=== PATIENT | female | born 2005 | race African-American/Black ===

== ENCOUNTER 2025-08-25 16:49 | Emergency (ER) | payer OTHER, SELFPAY ==
--- NOTE | ~2025-08-25 | XR_ITS ---
CLINICAL HISTORY: PAIN Three views of the right ankle. COMPARISON: None provided. FINDINGS: No ankle joint effusion. Ankle mortise appears symmetric on non-stressed views. Talar dome appears intact. Distal tibia and fibula appear intact. Linear lucency along the lateral aspect of the cuboid. Otherwise visualized tarsal bones appear intact. IMPRESSION: 1. Question nondisplaced fracture of the lateral aspect cuboid. Recommend correlation with prior imaging and clinical history. This document has been electronically signed by: Cash Hernandez MD on 08/25/2025 18:03:19
--- NOTE | ~2025-08-25 | CT_ITS ---
CLINICAL HISTORY: ?cuboid fx CT of the right lower extremity without IV contrast. COMPARISON: XR right ankle dated 08/25/25 at 17:25 EST FINDINGS: Nondisplaced fracture of the superior lateral and lateral aspect of the cuboid (best seen on sagittal reformats series 9, image 83 and 90). Nondisplaced fracture of the anterior process of the calcaneus (series 9, image 82). Remaining tarsal bones, metatarsals and phalanges appear intact. Visualized portions of the distal tibia and fibula appear intact. No ankle joint effusion. IMPRESSION: 1. Nondisplaced fracture of the superior lateral and lateral aspect of the cuboid. 2. Nondisplaced fracture of the anterior process calcaneus. This document has been electronically signed by: Cash Hernandez MD on 08/25/2025 21:05:14
--- NOTE | ~2025-08-25 | XR_ITS ---
CLINICAL HISTORY: PAIN Three views of the right foot. COMPARISON: None provided. FINDINGS: No ankle joint effusion. Normal tarsometatarsal alignment. Linear lucency along the body of the cuboid. Remaining tarsal bones appear intact. Metatarsals and phalanges appear intact. IMPRESSION: 1. Question nondisplaced fracture of the cuboid. Recommend correlation with point tenderness. CT of the foot would be helpful for further characterization if appropriate. This document has been electronically signed by: Cash Hernandez MD on 08/25/2025 18:02:23
[2025-08-25 16:55] VITALS: BP 110/63; PULSE 93; RESP 18; TEMP 36.6; O2SAT 98; BMI 28.2
--- NOTE | 2025-08-25 16:56 | ED.LOWEXIN ---
HPI - Extremity Injury (Lower) General Chief Complaint: Extremity Injury, Lower Stated Complaint: rt leg injury Time Seen by Provider: 08/25/25 18:42 Source: patient and RN notes reviewed Mode of arrival: ambulatory Limitations: no limitations History of Present Illness ED Provider: Paris Seymour PA-C HPI Narrative: This is a 20-year-old female who presents emergency department with concerns of right ankle pain status post tripping in a pothole. Patient states that she twisted her right ankle, and immediately had pain. No head strike or LOC.She has been unable to bear weight on her right foot and ankle secondary to the pain. Unsure if she fell today popping or cracking sensation. She took ibuprofen prior to arrival today. No other complaints or concerns at this time. MD complaint: ankle injury and foot injury Onset (ago): hour(s) Type of Injury: inversion Place: street/outdoors Associated symptoms: snap/pop sensation, swelling and unable to bear weight Other symptoms: none Related Data Previous Rx's ?Medication ?Instructions ?Recorded acetaminophen 500 mg capsule 1,000 mg (2 x 500 mg) PO .q8 PRN 08/25/25 fever or pain #30 caps ibuprofen 600 mg tablet 600 mg PO Q8H PRN fever or pain 08/25/25 #30 tabs oxycodone 5 mg tablet 5 mg PO TID PRN pain, severe #14 08/25/25 tabs Allergies Allergy/AdvReac Type Severity Reaction Status Date / Time shellfish derived (shellfish) Allergy Unknown Verified 08/25/25 16:57 Review of Systems Review of Systems: Constitutional : No Fever, No Chills ENT/Mouth : No sore throat, No Rhinorrhea Eyes: No Eye Pain, No Swelling, No Redness Cardiovascular : No Chest Pain, No SOB Respiratory : No Cough, No Sputum Gastrointestinal : No Nausea, No Vomiting, No Diarrhea, No abdominal Pain Genitourinary : No Dysuria, No Hematuria Musculoskeletal : + joint pain, No Myalgias, + Joint Swelling Skin : No Skin Lesions Neuro : No Weakness, No Numbness, No Headache All other systems reviewed and are negative Yes all other systems are reviewed and are negative Constitutional: Constitutional: Reports as per [facility] Social History Social History Advance Directives: No Advance Directives Information Provided: No Do you have a plan to hurt others: No Plan Physical Exam Exam: Exam: General: Awake, alert, and oriented X3. No acute distress. HEENT: Normal inspection CVS: Normal heart rate and rhythm. Pulses normal. Respiratory: No respiratory distress Skin: Warm, dry, no rashes noted to exposed skin. Normal skin color. Normal skin turgor. Extremities: Right ankle with tenderness palpation along the lateral malleolus with moderate edema noted. She also has tenderness palpation along the forefoot. Strong DP PT pulses. No open wounds. Neuro: Oriented X 3. No motor deficit. No sensory deficit. Vital Signs: Vital Signs: Last Vital Signs Temp 98 F 08/25/25 16:55 Pulse 93 08/25/25 16:55 Resp 18 08/25/25 16:55 BP 110/63 08/25/25 16:55 Pulse Ox 98 08/25/25 16:55 O2 Del Method Room Air 08/25/25 16:55 BMI result Body Mass Index 28.2 Course Course Course Narrative: This is an RME: Additional HPI, ROS, PE not included below will be deferred to primary provider. RME assessment and note performed by: Paris Seymour PA-C This is a [id number]-female, asthma and eczema, who presents to the ER wtih complaints of right ankle/foot pain s/p inversion injury. TTP overlying the lateral mallelous and lateral foot. No open wounds Plan: Xrays Reevaluation(s) Reevaluation #1: 10:36 PM 08/25/2025 ([facility]): The patient is a 20-year-old female presenting to the ED for evaluation of right foot and ankle pain after twisting her foot in a pothole. The patient was sent for x-ray which showed question irregularity of the cuboid. Recommendation for CT. Patient was signed out to this provider pending CT results. CT has now resulted and confirms nondisplaced fracture of the cuboid as well as a nondisplaced fracture of the anterior process of the calcaneus, no involvement of the posterior calcaneus, no displacement. Seeing as the patient's injury was not from axial loading, there was no involvement of the posterior calcaneus, and the fractures are stable and nondisplaced, patient will be placed in a walking boot and provided crutches to remain nonweightbearing until follow up with Orthopedics. Medications Administered Discontinued Medications Generic Name Dose Route Start Last Admin Trade Name Satinder PRN Reason Stop Dose Admin Acetaminophen 975 mg 08/25/25 19:07 08/25/25 19:26 Acetaminophen 325 Mg Tablet PO 08/25/25 19:08 975 mg ONCE ONE Administration Medical Decision Making Medical Decision Making MDM Narrative: This is a 20-year-old female who presents emergency department with concerns of right ankle pain status post tripping in a pothole. Patient states that she twisted her right ankle, and immediately had pain. On arrival, vital signs within normal limits. She is speaking full sentences under no acute distress. Differential diagnoses, fracture, contusion, sprain, strain. 8:05 PM 08/25/2025 (Paris Seymour PA-C): X-ray of the ankle and foot reveal a question of a nondisplaced fracture of the cuboid. Recommending CT of the foot. CT of the foot was ordered, also ordered Tylenol p.o.. Differential Diagnosis Differential Diagnoses: The differential diagnosis associated with the presentation includes Fracture, contusion, sprain, strain Radiology Impression Discussion of test interpretation with radiology: I have reviewed the radiologist's reading. Radiologist Impression: FINDINGS: No ankle joint effusion. Ankle mortise appears symmetric on non-stressed views. Talar dome appears intact. Distal tibia and fibula appear intact. Linear lucency along the lateral aspect of the cuboid. Otherwise visualized tarsal bones appear intact. IMPRESSION: 1. Question nondisplaced fracture of the lateral aspect cuboid. Recommend correlation with prior imaging and clinical history. This document has been electronically signed by: Cash Hernandez MD on 08/25/2025 18:03:19 Dictated By: Cash Hernandez MD FINDINGS: No ankle joint effusion. Normal tarsometatarsal alignment. Linear lucency along the body of the cuboid. Remaining tarsal bones appear intact. Metatarsals and phalanges appear intact. IMPRESSION: 1. Question nondisplaced fracture of the cuboid. Recommend correlation with point tenderness. CT of the foot would be helpful for further characterization if appropriate. This document has been electronically signed by: Cash Hernandez MD on 08/25/2025 18:02:23 Dictated By: Cash Hernandez MD Discharge Plan Discharge Clinical Impression: Closed fracture of cuboid of right foot Qualifiers: Encounter type: initial encounter Fracture alignment: nondisplaced Qualified Code(s): S92.214A - Nondisplaced fracture of cuboid bone of right foot, initial encounter for closed fracture Closed fracture of right calcaneus Qualifiers: Encounter type: initial encounter Calcaneus location: anterior process Fracture alignment: nondisplaced Qualified Code(s): S92.024A - Nondisplaced fracture of anterior process of right calcaneus, initial encounter for closed fracture Patient Disposition: Home, Self-Care Instructions: Foot Fracture in Adults (ED), Calcaneal Fracture (ED) Additional Instructions: Thank you for choosing [facility]'s Emergency Department for your care today. At this time there is no indication for admission to the hospital or continued ED observation, and it is safe to discharge you home. Unfortunately your x-ray and CT today showed evidence of a nondisplaced fracture of your calcaneus bone, and your cuboid bone of your right foot. We have placed you in a splint, and provided you with crutches. Please use the crutches to remain non-weightbearing until instructed otherwise by the orthopedic team/clinic. Please keep the splint on and dry until follow up with the orthopedic clinic. Please call the orthopedic clinic at the number provided to schedule a follow up appointment. You should take alternating (staggered) doses of ibuprofen 600mg and Tylenol 1000mg every 4 hours as needed for any additional pain. Please rest the injured area, and apply ice for 20 minutes every hour. As a part of your care plan, you have also been prescribed an opiate based pain medication called oxycodone. There is no requirement to take this medication. Please take this medication only for severe pain that is not relieved by ibuprofen and/or Tylenol. Opiate based medications have a high risk of unintentional addiction and abuse. Take this medication only as directed and only if absolutely necessary. This medicine can make you drowsy, you are not allowed to drive, operate heavy machinery, or be the sole care provider for children while taking this medication. Please follow up with your primary care physician for re-evaluation, additional management of your symptoms, and continued preventative care. If you do not have a primary care physician, please call the [facility] at [phone] to establish a new primary care physician. While waiting to establish your new primary care physician, you can call our Walk-in Care Clinic at [phone] for non-emergency needs. Please return to the emergency department if you develop a severe or sudden change in your symptoms, a fever over 100.4 that does not improve with Tylenol or Ibuprofen, recurrent vomiting, or any other new or worsening symptoms or concerns. Prescriptions: New ibuprofen 600 mg tablet 600 mg PO Q8H PRN (Reason: fever or pain) Qty: 30 0RF acetaminophen 500 mg capsule 1,000 mg PO .q8 PRN (Reason: fever or pain) Qty: 30 0RF oxycodone 5 mg tablet 5 mg PO TID PRN (Reason: pain, severe) Qty: 14 0RF Rx Instructions: Partial Fill upon patient request. Referrals: [facility] [place] Orthopedic Surgeons [Provider Group] Stand Alone Forms: Work/School Release Print Language: Persian
[2025-08-25 23:08] VITALS: BP 119/64; PULSE 76; RESP 14; TEMP 36.3; O2SAT 96
[2025-08-25 23:35] VITALS: BP 119/64; PULSE 76; RESP 14; TEMP 36.3; O2SAT 96
== END 2025-08-25 23:36 | disposition home or self-care (01) ==
PROVIDERS: Emergency Provider Emergency Medicine Emergency Medical Services
DX: S92.214A Nondisplaced fracture of cuboid bone of right foot, initial encounter for closed fracture (principal); S92.024A Nondisplaced fracture of anterior process of right calcaneus, initial encounter for closed fracture; W18.42XA Slipping, tripping and stumbling without falling due to stepping into hole or opening, initial encounter; Y93.9 Activity, unspecified; Y92.410 Unspecified street and highway as the place of occurrence of the external cause; Y99.9 Unspecified external cause status; Z91.013 Allergy to seafood
CPT/HCPCS: 73610; 73630; 73700; 99283; 99284

== ENCOUNTER → 2025-08-25 16:59 | Outpatient (BNV) | payer OTHER, SELFPAY | PROVIDERS: Emergency Provider Emergency Medicine Emergency Medical Services; Visit Provider Radiology Diagnostic Radiology | DX: S92.214A Nondisplaced fracture of cuboid bone of right foot, initial encounter for closed fracture (principal); S92.024A Nondisplaced fracture of anterior process of right calcaneus, initial encounter for closed fracture; M25.571 Pain in right ankle and joints of right foot; M79.671 Pain in right foot | CPT/HCPCS: 73610; 73630; 73700 ==

== ENCOUNTER 2025-08-27 12:33 | Outpatient (AMB) | payer OTHER, SELFPAY ==
[2025-08-27 12:44] VITALS: BMI 28.2
--- NOTE | 2025-08-27 12:44 | A.OFFVIS_ITS ---
Vital Signs 08/27/25 12:44 Height 5 ft 6 in Weight 175 lb BMI 28.2 Intake Visit Reasons: Nondisplaced fracture of cuboid bone of right foot Intake Note: Brad is a 20 year old female who presents today as a new patient for an evaluation of her non displaced fracture of the cuboid bone on the right foot. Patient reports injury occurred after tripping over a pot whole. [place] [facility] [place] she was provided with [place] and prescribed Tylenol 500, ibuprofen 600, and oxycodone 5mg. Patient reports the medication have helped slightly. She had a previous sprain of her ankle of the right foot last year. Allergies shellfish derived (shellfish) Allergy (Verified 08/27/25 13:00) Unknown HPI Comments Details: The patient is a 20-year-old female with a past medical history as seen below presenting with right foot pain following a fall. The patient states she tripped on a pothole. The patient described the incident as a popping situation where the foot was rolled, leading to the injury. The pain severity varies, reaching up to 6-7/10 without medication and reducing to 4/10 with medication. Initial swelling and bruising were significant, particularly around the cuboid and calcaneus areas. She denies any numbness and tingling. Patient went to the emergency room where she had x-rays and was placed in a cam boot with crutches.. She denies any other pedal concerns. [facility] Medical History (Updated 08/30/25 @ 16:53 by Carmen Zavala DPM) Right foot injury Right foot pain Review of Systems Const Details: - Musculoskeletal: Reports right foot pain, swelling, and bruising following an injury. All systems reviewed & are unremarkable except as noted in HPI and below Physical Exam Vital Signs: BMI result Body Mass Index 28.2 Extrem Other: Right lower extremity focused physical exam: Derm: No open lesions abrasions or wounds noted. No ecchymosis or discoloration noted. No Clinical signs of infection noted. Skin supple and turgor within normal limits. Vascular: DP/PT pulses palpable. Capillary refill time less than 3 seconds. Temperature gradient warm to warm. Mild edema noted to the foot. No varicosities noted. Neuro: Protective sensation is grossly intact. MSK: Pain on palpation to dorsal lateral aspect of the foot. Pain on palpation along the area of the cuboid and calcaneus. Range of motion of the forefoot and ankle within normal limits. Antalgic gait noted, has been weight-bearing in a CAMboot with crutches. MMT 4/5. Office Procedures AMB Podiatry Dressing Details of Procedure: Applied a stockinette, cast padding and Bam bandage to the right lower extremity with the use of the cam boot. 56001 - Short leg splint Procedure code (CPT) selection complete Results Reviewed Results Reviewed: Ordered right foot x-rays to be performed prior to next visit. Podiatry read of right foot CT scan (08/25/2025): Nondisplaced cuboid fracture noted. Avulsion fracture of the anterior process of the calcaneus noted. No other acute fractures or dislocations noted. Right foot CT scan (08/25/2025): FINDINGS: Nondisplaced fracture of the superior lateral and lateral aspect of the cuboid (best seen on sagittal reformats series 9, image 83 and 90). Nondisplaced fracture of the anterior process of the calcaneus (series 9, image 82). Remaining tarsal bones, metatarsals and phalanges appear intact. Visualized portions of the distal tibia and fibula appear intact. No ankle joint effusion. IMPRESSION: 1. Nondisplaced fracture of the superior lateral and lateral aspect of the cuboid. 2. Nondisplaced fracture of the anterior process calcaneus. Podiatry read of right foot x-ray (08/25/2025): Nondisplaced fracture noted to the cuboid. No other acute fractures or dislocations noted. Joint spacing within normal limits. Hammertoe deformities 2-5 noted. Right foot x-ray (08/25/2025): FINDINGS: No ankle joint effusion. Normal tarsometatarsal alignment. Linear lucency along the body of the cuboid. Remaining tarsal bones appear intact. Metatarsals and phalanges appear intact. IMPRESSION: 1. Question nondisplaced fracture of the cuboid. Recommend correlation with point tenderness. CT of the foot would be helpful for further characterization if appropriate. Podiatry read of right ankle x-ray (08/25/2025): No acute fractures or dislocations noted. Joint spacing within normal limits. Right ankle x-ray (08/25/2025): FINDINGS: No ankle joint effusion. Ankle mortise appears symmetric on non-stressed views. Talar dome appears intact. Distal tibia and fibula appear intact. Linear lucency along the lateral aspect of the cuboid. Otherwise visualized tarsal bones appear intact. IMPRESSION: 1. Question nondisplaced fracture of the lateral aspect cuboid. Recommend correlation with prior imaging and clinical history. Assessment & Plan Assessment & Plan (1) Closed fracture of cuboid of right foot: Code(s): S92.211A - Displaced fracture of cuboid bone of right foot, initial encounter for closed fracture Category: Medical Qualifiers: Encounter type: initial encounter Fracture alignment: nondisplaced Qualified Code(s): S92.214A - Nondisplaced fracture of cuboid bone of right foot, initial encounter for closed fracture (2) Closed fracture of right calcaneus: Code(s): S92.001A - Unspecified fracture of right calcaneus, initial encounter for closed fracture Category: Medical Qualifiers: Calcaneus location: anterior process Encounter type: initial encounter Fracture alignment: nondisplaced Qualified Code(s): S92.024A - Nondisplaced fracture of anterior process of right calcaneus, initial encounter for closed fracture (3) Right foot pain: Code(s): M79.671 - Pain in right foot Category: Medical (4) Right foot injury: Code(s): S99.921A - Unspecified injury of right foot, initial encounter Category: Medical Qualifiers: Encounter type: initial encounter Qualified Code(s): S99.921A - Unspecified injury of right foot, initial encounter Plan I discussed with the patient the nature of the fractures, emphasizing that they are stable and do not require surgical intervention at this time. We reviewed the importance of non-weight bearing to prevent displacement and the need for regular follow-up with x-rays to ensure proper healing. I also explained the options for mobility aids, including crutches, a knee scooter, or a wheelchair, to facilitate movement without compromising the healing process. - Applied a stockinette cast padding and Bam bandage to the right lower extremity with the use of the cam boot. - Patient is to keep the cam boot on at all times. - Patient is to keep the dressing clean dry and intact. - Patient is to be nonweightbearing to the right lower extremity with the use of an assistive device. - Prescribed a knee scooter and wheelchair. - Patient is to take ibuprofen and Tylenol as needed for pain. - Ordered right foot x-rays to be performed prior to next visit. - Continue rice protocol. RTC in 2 weeks. Orders: Orders XR foot RT min 3V 08/27/25 M79.671 - Pain in right foot, S92.024A - Nondisplaced fracture of anterior process of right calcaneus, initial encounter for closed fracture, S92.214A - Nondisplaced fracture of cuboid bone of right foot, initial encounter for closed fracture, S99.921A - Unspecified injury of right foot, initial encounter AMB Podiatry Dressing 08/27/25 M79.671 - Pain in right foot, S92.024A - Nondisplaced fracture of anterior process of right calcaneus, initial encounter for closed fracture, S92.214A - Nondisplaced fracture of cuboid bone of right foot, initial encounter for closed fracture, S99.921A - Unspecified injury of right foot, initial encounter Medications: New [Knee scooter] As directed 1 ea 0RF M79.671 - Pain in right foot, S92.024A - Nondisplaced fracture of anterior process of right calcaneus, initial encounter for closed fracture, S92.214A - Nondisplaced fracture of cuboid bone of right foot, initial encounter for closed fracture, S99.921A - Unspecified injury of right foot, initial encounter [Wheelchair] As directed 1 ea 0RF M79.671 - Pain in right foot, S92.024A - Nondisplaced fracture of anterior process of right calcaneus, initial encounter for closed fracture, S92.214A - Nondisplaced fracture of cuboid bone of right foot, initial encounter for closed fracture, S99.921A - Unspecified injury of right foot, initial encounter Coding Level of Care Code New Pt Level 4 (13017) Diagnoses Closed fracture of cuboid of right foot S92.214A Encounter type: initial encounter Fracture alignment: nondisplaced Closed fracture of right calcaneus S92.024A Calcaneus location: anterior process Encounter type: initial encounter Fracture alignment: nondisplaced Right foot pain M79.671 Injury of right foot, initial encounter S99.921A Encounter type: initial encounter CPT Codes Podiatry Dressing - CPT: 90545 - Short leg splint ([id number]) Time Spent (min) 52
== END 2025-08-27 13:14 | disposition home or self-care (01) ==
LOC: HO.HPODS 12:34
PROVIDERS: Visit Provider Student in an Organized Health Care Education/Training Program
DX: S92.214A Nondisplaced fracture of cuboid bone of right foot, initial encounter for closed fracture (principal); S92.024A Nondisplaced fracture of anterior process of right calcaneus, initial encounter for closed fracture; M79.671 Pain in right foot; S99.921A Unspecified injury of right foot, initial encounter
CPT/HCPCS: 29515; 99204

== ENCOUNTER → 2025-08-27 12:33 | Outpatient (BNVA) | payer OTHER, SELFPAY | PROVIDERS: Visit Provider Student in an Organized Health Care Education/Training Program | DX: S92.214A Nondisplaced fracture of cuboid bone of right foot, initial encounter for closed fracture (principal); S92.024A Nondisplaced fracture of anterior process of right calcaneus, initial encounter for closed fracture; W18.42XA Slipping, tripping and stumbling without falling due to stepping into hole or opening, initial encounter; Y92.9 Unspecified place or not applicable; Y93.01 Activity, walking, marching and hiking | CPT/HCPCS: 29515 ==

== ENCOUNTER 2025-09-11 15:50 | Outpatient (REF) | payer OTHER, SELFPAY ==
--- NOTE | ~2025-09-11 | XR_ITS ---
EXAMINATION: XR FOOT, RIGHT CLINICAL INFORMATION: S92.214A - Nondisplaced fracture of cuboid bone of right foot, initial e... COMPARISON: August 25, 2025 TECHNIQUE: AP, lateral, and oblique views of the right foot. FINDINGS: Subtle nondisplaced fracture involving central cuboid bone extending to the lateral cortex is again identified . No other abnormalities are seen. XR/XR foot RT min 3V IMPRESSION: Nondisplaced cuboid fracture is very subtle. Electronically signed by: Yfn Newby MD 09/11/2025 04:21 PM EST
== END 2025-09-11 15:51 | disposition home or self-care (01) ==
LOC: HO.XRAY 15:50
PROVIDERS: Visit Provider Student in an Organized Health Care Education/Training Program
DX: S92.214A Nondisplaced fracture of cuboid bone of right foot, initial encounter for closed fracture (principal); S92.024A Nondisplaced fracture of anterior process of right calcaneus, initial encounter for closed fracture
CPT/HCPCS: 73630

== ENCOUNTER → 2025-09-11 15:54 | Outpatient (BNV) | payer OTHER, SELFPAY | PROVIDERS: Visit Provider Radiology Diagnostic Radiology | DX: S92.214A Nondisplaced fracture of cuboid bone of right foot, initial encounter for closed fracture (principal) | CPT/HCPCS: 73630 ==

== ENCOUNTER 2025-09-14 15:18 | Outpatient (AMB) | payer OTHER, SELFPAY ==
--- NOTE | 2025-09-14 15:18 | A.OFFVIS_ITS ---
Vital Signs 09/14/25 15:19 Height 5 ft 6 in Weight 175 lb BMI 28.2 Intake Visit Reasons: f/u xrays; right cuboid and calc fx Intake Note: Brad is a 20 year old female who presents to the office today for a follow up xrays; right cuboid and calc fx. At last visit pt was placed in a CAM boot and was instructed to wear the boot at all times. Pt was prescribed a wheelchair and a knee scooter. X-rays were to be completed before follow up. Patient reports she is doing well with no further concerns at this time. Allergies shellfish derived (shellfish) Allergy (Verified 08/27/25 13:00) Unknown HPI Comments Details: The patient is a 20 year old female presenting for follow-up of a right cuboid and anterior process of the calcaneus fracture. She states she recently slipped on the snow and knocked her foot, which caused pain and increased swelling but symptoms have since improved. She states she experiences intermittent mild numbness in her fifth toe and occasionally the adjacent toe. She denies any other pedal concerns. Patient states she has been nonweightbearing with the use of crutches. [facility] Medical History (Updated 08/30/25 @ 16:53 by Carmen Zavala DPM) Right foot injury Right foot pain Review of Systems Const Details: - Musculoskeletal: Reports right foot pain and intermittent numbness. All systems reviewed & are unremarkable except as noted in HPI and below Physical Exam Vital Signs: BMI result Body Mass Index 28.2 Extrem Other: Right lower extremity focused physical exam: Derm: No open lesions abrasions or wounds noted. No ecchymosis or discoloration noted. No Clinical signs of infection noted. Skin supple and turgor within normal limits. Vascular: DP/PT pulses palpable. Capillary refill time less than 3 seconds. Temperature gradient warm to warm. Mild edema noted to the foot. No varicosities noted. Neuro: Protective sensation is grossly intact. MSK: Pain on palpation to dorsal lateral aspect of the foot along the area of the cuboid. Range of motion of the forefoot and ankle within normal limits. Antalgic gait noted, has been weight-bearing in a CAMboot with crutches. MMT 4/5. No crepitus or fluctuance noted. Patient able to wiggle toes. Office Procedures AMB Podiatry Dressing Details of Procedure: Applied a stockinette, cast padding, and Bam bandage to the right lower extremity with the use of the cam boot. 58714 - Short leg splint Procedure code (CPT) selection complete Results Reviewed Results Reviewed: Ordered right foot x-rays to be performed prior to next visit. Podiatry read of right foot CT scan (09/11/2025): Healing nondisplaced cuboid fracture with increased bone consolidation and callus formation. Healing avulsion fracture of the anterior process of the calcaneus with increased bone consolidation information. No new acute fractures or dislocations noted. Right foot CT scan (09/11/2025): FINDINGS: Subtle nondisplaced fracture involving central cuboid bone extending to the lateral cortex is again identified . No other abnormalities are seen. IMPRESSION: Nondisplaced cuboid fracture is very subtle. Podiatry read of right foot CT scan (08/25/2025): Nondisplaced cuboid fracture noted. Avulsion fracture of the anterior process of the calcaneus noted. No other acute fractures or dislocations noted. Right foot CT scan (08/25/2025): FINDINGS: Nondisplaced fracture of the superior lateral and lateral aspect of the cuboid (best seen on sagittal reformats series 9, image 83 and 90). Nondisplaced fracture of the anterior process of the calcaneus (series 9, image 82). Remaining tarsal bones, metatarsals and phalanges appear intact. Visualized portions of the distal tibia and fibula appear intact. No ankle joint effusion. IMPRESSION: 1. Nondisplaced fracture of the superior lateral and lateral aspect of the cuboid. 2. Nondisplaced fracture of the anterior process calcaneus. Podiatry read of right foot x-ray (08/25/2025): Nondisplaced fracture noted to the cuboid. No other acute fractures or dislocations noted. Joint spacing within normal limits. Hammertoe deformities 2-5 noted. Right foot x-ray (08/25/2025): FINDINGS: No ankle joint effusion. Normal tarsometatarsal alignment. Linear lucency along the body of the cuboid. Remaining tarsal bones appear intact. Metatarsals and phalanges appear intact. IMPRESSION: 1. Question nondisplaced fracture of the cuboid. Recommend correlation with point tenderness. CT of the foot would be helpful for further characterization if appropriate. Podiatry read of right ankle x-ray (08/25/2025): No acute fractures or dislocations noted. Joint spacing within normal limits. Right ankle x-ray (08/25/2025): FINDINGS: No ankle joint effusion. Ankle mortise appears symmetric on non-stressed views. Talar dome appears intact. Distal tibia and fibula appear intact. Linear lucency along the lateral aspect of the cuboid. Otherwise visualized tarsal bones appear intact. IMPRESSION: 1. Question nondisplaced fracture of the lateral aspect cuboid. Recommend correlation with prior imaging and clinical history. Assessment & Plan Assessment & Plan (1) Closed fracture of cuboid of right foot: Code(s): S92.211A - Displaced fracture of cuboid bone of right foot, initial encounter for closed fracture Category: Medical Qualifiers: Encounter type: initial encounter Fracture alignment: nondisplaced Qualified Code(s): S92.214A - Nondisplaced fracture of cuboid bone of right foot, initial encounter for closed fracture (2) Closed fracture of right calcaneus: Code(s): S92.001A - Unspecified fracture of right calcaneus, initial encounter for closed fracture Category: Medical Qualifiers: Calcaneus location: anterior process Encounter type: initial encounter Fracture alignment: nondisplaced Qualified Code(s): S92.024A - Nondisplaced fracture of anterior process of right calcaneus, initial encounter for closed fracture (3) Right foot pain: Code(s): M79.671 - Pain in right foot Category: Medical (4) Right foot injury: Code(s): S99.921A - Unspecified injury of right foot, initial encounter Category: Medical Qualifiers: Encounter type: initial encounter Qualified Code(s): S99.921A - Unspecified injury of right foot, initial encounter Plan Patient was informed and verbally consented to the use of an ambient scribe for clinic note documentation during this visit. I reviewed the patient's recent foot X-rays with her, showing her the images and confirming that the fractures are healing well without any displacement. We discussed her symptoms of intermittent numbness in her toes, which have been improving. I outlined a plan for her to gradually start weight-bearing, beginning this week with partial weight-bearing to the right heel using crutches, and progressing next week to weight-bearing as tolerated to the right lower extremity with crutches. Ordered new x-rays to be performed prior to next visit. - An order was placed for the patient to get new X-rays of her right foot. - The patient will begin a progressive weight-bearing protocol: For this week, partial weight-bearing to the right heel with an the assistive device. Starting next week transition to weight-bearing as tolerated to the right lower extremity with an assistive device. - Patient is to keep the dressing clean dry and intact. - Patient is to take ibuprofen and Tylenol as needed for pain. - Continue rice protocol. RTC in 3 weeks. Orders: Orders AMB Podiatry Dressing 09/14/25 M79.671 - Pain in right foot, S92.024A - Nondisplaced fracture of anterior process of right calcaneus, initial encounter for closed fracture, S92.214A - Nondisplaced fracture of cuboid bone of right foot, initial encounter for closed fracture, S99.921A - Unspecified injury of right foot, initial encounter XR foot RT min 3V 09/14/25 M79.671 - Pain in right foot, S92.024A - Nondi splaced fracture of anterior process of right calcaneus, initial encounter for closed fracture, S92.214A - Nondisplaced fracture of cuboid bone of right foot, initial encounter for closed fracture, S99.921A - Unspecified injury of right foot, initial encounter Coding Level of Care Code Est Pt Level 4 (59080) Diagnoses Closed fracture of cuboid of right foot S92.214A Encounter type: initial encounter Fracture alignment: nondisplaced Closed fracture of right calcaneus S92.024A Calcaneus location: anterior process Encounter type: initial encounter Fracture alignment: nondisplaced Right foot pain M79.671 Injury of right foot, initial encounter S99.921A Encounter type: initial encounter CPT Codes Podiatry Dressing - CPT: 32411 - Short leg splint ([id number]) Time Spent (min) 33
[2025-09-14 15:19] VITALS: BMI 28.2
== END 2025-09-14 15:39 | disposition home or self-care (01) ==
LOC: HO.HPODS 15:18
PROVIDERS: Visit Provider Student in an Organized Health Care Education/Training Program
DX: S92.214A Nondisplaced fracture of cuboid bone of right foot, initial encounter for closed fracture (principal); S92.024A Nondisplaced fracture of anterior process of right calcaneus, initial encounter for closed fracture; M79.671 Pain in right foot; S99.921A Unspecified injury of right foot, initial encounter
CPT/HCPCS: 29515; 99214

== ENCOUNTER → 2025-09-14 15:18 | Outpatient (BNVA) | payer OTHER, SELFPAY | PROVIDERS: Visit Provider Student in an Organized Health Care Education/Training Program | DX: S92.214A Nondisplaced fracture of cuboid bone of right foot, initial encounter for closed fracture (principal); S92.024A Nondisplaced fracture of anterior process of right calcaneus, initial encounter for closed fracture; X58.XXXA Exposure to other specified factors, initial encounter; Y93.9 Activity, unspecified; Y92.9 Unspecified place or not applicable; Y99.9 Unspecified external cause status | CPT/HCPCS: 29515 ==

== ENCOUNTER 2025-09-25 16:23 | Outpatient (REF) | payer OTHER, SELFPAY ==
--- NOTE | ~2025-09-25 | XR_ITS ---
EXAMINATION: XR FOOT, RIGHT CLINICAL INFORMATION: M79.671 - Pain in right foot COMPARISON: None available. TECHNIQUE: AP, lateral, and oblique views of the right foot. FINDINGS: There is a nondisplaced fracture cuboid bone extending to lateral cortex as was noted on the previous study. No additional fractures seen involving the tarsal bones. There is mild soft tissue swelling dorsal midfoot but improved since 09/11/2025. The ankle mortise and subtalar joints are normal on weightbearing lateral view. XR/XR foot RT min 3V IMPRESSION: Nondisplaced cuboid fracture with fracture line extending to lateral cortex. No displacement seen on the lateral weightbearing view. The findings are similar to previous study. The ankle mortise and subtalar joints are normal. Electronically signed by: Steve Velazquez MD 09/28/2025 08:58 AM [facility]
== END 2025-09-25 16:24 | disposition home or self-care (01) ==
LOC: HO.XRAY 16:23
PROVIDERS: Visit Provider Student in an Organized Health Care Education/Training Program
DX: S92.024A Nondisplaced fracture of anterior process of right calcaneus, initial encounter for closed fracture (principal); S92.214A Nondisplaced fracture of cuboid bone of right foot, initial encounter for closed fracture; X58.XXXA Exposure to other specified factors, initial encounter
CPT/HCPCS: 73630

== ENCOUNTER → 2025-09-25 16:27 | Outpatient (BNV) | payer OTHER, SELFPAY | PROVIDERS: Visit Provider Radiology Diagnostic Radiology | DX: S92.214A Nondisplaced fracture of cuboid bone of right foot, initial encounter for closed fracture (principal) | CPT/HCPCS: 73630 ==